=== PATIENT | female | born 1985 | race Caucasian/White ===

== ENCOUNTER 2019-08-24 12:42 | Emergency (ER) | payer OTHER, MEDICAID ==
[~2019-08-24] VITALS: Ht 165.1 cm; Wt 49.0 kg
[2019-08-24] MEDS ORDERED: [UNRECOGNIZED DRUG - OTHER] (12:51)
--- NOTE | 2019-08-24 13:05 | NUR ---
pt is in room #1b. dr carranza evaluated the pt.
[2019-08-24] MEDS ORDERED: IBUPROFEN 400 MG TABLET PO ONE (13:15)
[2019-08-24] MEDS ORDERED: IBUPROFEN 400 MG TABLET ONE (13:17)
--- NOTE | 2019-08-24 13:55 | NUR ---
PT WAS D/C'd TO HOME. D/C INSTRUCTIONS GIVEN TO THE PT.
[2019-08-24 13:56] VITALS: BP 132/65
== END 2019-08-24 13:56 | disposition home or self-care (01) ==
LOC: ER 12:42
DX: G89.11 Acute pain due to trauma (principal); M54.5 Low back pain; Z88.6 Allergy status to analgesic agent; Z79.899 Other long term (current) drug therapy; V49.9XXA Car occupant (driver) (passenger) injured in unspecified traffic accident, initial encounter; Y93.89 Activity, other specified; Y92.89 Other specified places as the place of occurrence of the external cause; Y99.8 Other external cause status